=== PATIENT | female | born 1995 | race Caucasian/White ===

== ENCOUNTER 2017-01-05 18:56 | Outpatient (CLI) | payer OTHER | END 2017-01-05 20:45 | disposition home or self-care (01) | LOC: GENOP 18:56 | DX: O99.89 Other specified diseases and conditions complicating pregnancy, childbirth and the puerperium (principal); R10.30 Lower abdominal pain, unspecified; M54.9 Dorsalgia, unspecified; Z3A.22 22 weeks gestation of pregnancy | CPT/HCPCS: 81001; 87086; G0463 ==

== ENCOUNTER 2017-01-06 16:30 | Outpatient (CLI) | payer OTHER | END 2017-01-06 19:10 | disposition home or self-care (01) | LOC: GENOP 16:30 | DX: O99.89 Other specified diseases and conditions complicating pregnancy, childbirth and the puerperium (principal); R10.9 Unspecified abdominal pain; Z3A.35 35 weeks gestation of pregnancy | CPT/HCPCS: G0463 ==

== ENCOUNTER 2017-01-11 21:03 | Outpatient (CLI) | payer OTHER | END 2017-01-11 23:00 | disposition home or self-care (01) | LOC: GENOP 21:03 | DX: O46.93 Antepartum hemorrhage, unspecified, third trimester (principal); Z3A.36 36 weeks gestation of pregnancy | CPT/HCPCS: 81001; G0463 ==

== ENCOUNTER 2017-01-27 21:32 | Outpatient (CLI) | payer OTHER | END 2017-01-28 01:39 | disposition home or self-care (01) | LOC: GENOP 21:32 | DX: O42.92 Full-term premature rupture of membranes, unspecified as to length of time between rupture and onset of labor (principal); Z3A.38 38 weeks gestation of pregnancy | CPT/HCPCS: 81001; 83518; G0463 ==

== ENCOUNTER 2017-01-29 21:41 | Observation (INO) | payer OTHER ==
[~2017-01-29] VITALS: Ht 160 cm; Wt 64.0 kg
[2017-01-30 00:25] LABS: HEMOGLOBIN 11.2 gm/dl (12.3-15.3); RED BLOOD COUNT 4.06 M/UL (4.00-5.10)
== END 2017-01-30 14:51 | disposition home or self-care (01) ==
LOC: GENOP 21:41 → OB 01-30 00:03
PROVIDERS: ADMIT Obstetrics & Gynecology
DX: O47.1 False labor at or after 37 completed weeks of gestation (principal); O99.89 Other specified diseases and conditions complicating pregnancy, childbirth and the puerperium; R10.30 Lower abdominal pain, unspecified; M54.9 Dorsalgia, unspecified; Z3A.39 39 weeks gestation of pregnancy; Z90.49 Acquired absence of other specified parts of digestive tract
CPT/HCPCS: 36415; 81001; 85025; 96360; 96361; G0378; J2270; J7120

== ENCOUNTER 2017-02-05 02:11 | Inpatient (IN) | payer OTHER ==
[~2017-02-05] VITALS: Ht 160 cm; Wt 64.0 kg
[2017-02-05 06:13] LABS: HEMOGLOBIN 11.3 gm/dl (12.3-15.3); RED BLOOD COUNT 4.07 M/UL (4.00-5.10); WHITE BLOOD COUNT 11.9 K/UL (4.5-11.0)
[2017-02-06 03:26] LABS: HEMOGLOBIN 10.2 gm/dl (12.3-15.3)
[2017-02-07] MEDS ORDERED: IBUPROFEN600 MG PO (09:48)
== END 2017-02-07 12:25 | disposition home or self-care (01) | DRG 775 ==
LOC: GENOP 02:11 → OB 05:35
PROVIDERS: ADMIT Obstetrics & Gynecology
PROC: 0UQJXZZ Repair Clitoris, External Approach (ICD-10-PCS; principal; 2017-02-05)
PROC: 10907ZC Drainage of Amniotic Fluid, Therapeutic from Products of Conception, Via Natural or Artificial Opening (ICD-10-PCS; principal; 2017-02-05)
PROC: 4A1H7CZ Monitoring of Products of Conception, Cardiac Rate, Via Natural or Artificial Opening (ICD-10-PCS; principal; 2017-02-05)
PROC: 0UQMXZZ Repair Vulva, External Approach (ICD-10-PCS; principal; 2017-02-05)
PROC: 10H07YZ Insertion of Other Device into Products of Conception, Via Natural or Artificial Opening (ICD-10-PCS; principal; 2017-02-05)
PROC: 4A1J74Z Monitoring of Products of Conception, Nervous Electrical Activity, Via Natural or Artificial Opening (ICD-10-PCS; principal; 2017-02-05)
PROC: 10H073Z Insertion of Monitoring Electrode into Products of Conception, Via Natural or Artificial Opening (ICD-10-PCS; principal; 2017-02-05)
PROC: 10E0XZZ Delivery of Products of Conception, External Approach (ICD-10-PCS; principal; 2017-02-05)
PROC: 3E0234Z Introduction of Serum, Toxoid and Vaccine into Muscle, Percutaneous Approach (ICD-10-PCS; 2017-02-07)
DX: O99.344 Other mental disorders complicating childbirth (principal); O70.0 First degree perineal laceration during delivery; O71.89 Other specified obstetric trauma; F41.9 Anxiety disorder, unspecified; Z3A.40 40 weeks gestation of pregnancy; Z37.0 Single live birth; O75.89 Other specified complications of labor and delivery; J45.909 Unspecified asthma, uncomplicated; Z88.8 Allergy status to other drugs, medicaments and biological substances; Z82.49 Family history of ischemic heart disease and other diseases of the circulatory system; Z80.9 Family history of malignant neoplasm, unspecified; Z80.3 Family history of malignant neoplasm of breast; Z83.3 Family history of diabetes mellitus; Z23 Encounter for immunization
CPT/HCPCS: 36415; 51702; 81001; 82800; 85014; 85018; 85025; 90707; J2590; J2795; J3010; J7120

== ENCOUNTER 2020-11-14 19:52 | Emergency (ER) | payer OTHER ==
[~2020-11-14 19:52] MED LIST: AFRIN NASAL SPR30 ML; AMOXICILLIN500 MG PO; CLEOCIN HCL300 MG PO; FLONASE 0.05% N16 GM; IBUPROFEN600 MG PO; MUCINEX DM ER1 EAC1 PO; NAPROSYN500 MG PO; OMNICEF 300 MG300 MG PO; PRENATAL VITAM1 EAC3 PO; SALINE NASAL M126 ML; SUDAFED 60 MG T60 MG PO; Viscous lidocaine 2% TOP; ZOFRAN ODT 4 MG4 MG SL; ZYRTEC10 MG PO
[2020-11-14] MEDS ORDERED: ZOFRAN ODT 4 MG4 MG SL (22:57)
== END 2020-11-14 23:00 | disposition home or self-care (01) ==
LOC: ER1 19:52
DX: R11.10 Vomiting, unspecified (principal); R19.7 Diarrhea, unspecified; F17.200 Nicotine dependence, unspecified, uncomplicated; Z87.09 Personal history of other diseases of the respiratory system; Z88.1 Allergy status to other antibiotic agents
CPT/HCPCS: 99283